=== PATIENT | female | born 1970 | race Caucasian/White ===

== ENCOUNTER 2017-02-19 22:42 | Emergency (ER) | payer OTHER ==
[~2017-02-19] VITALS: Ht 154.9 cm; Wt 68.0 kg
[2017-02-19 23:02] VITALS: BP 134/90
--- NOTE | 2017-02-20 02:03 | NUR ---
TO ER BED 5
--- NOTE | 2017-02-20 02:10 | NUR ---
PATIENT PRESENTS TO ED WITH C/O RT ANKLE PAIN, SWELLING, WARMTH TO TOUCH, S/P SPIDER BITE LAST NIGHT PT DENIES N/V/D; SKIN IS PINK/WARM/DRY; AAOX4 WITH EVEN AND STEADY GAIT; LUNGS CLEAR BL; HR EVEN AND REGULAR; PT DENIES ANY FEVER, CP, SOB, OR COUGH AT THIS TIME; PATIENT STATES PAIN OF 7/10 AT THIS TIME; VSS; PATIENT POSITIONED FOR COMFORT; HOB ELEVATED; BEDRAILS UP X2; BED DOWN. ER MD MADE AWARE OF PT STATUS.
[2017-02-20 03:41] VITALS: BP 134/90
--- NOTE | 2017-02-20 03:42 | NUR ---
Patient discharged with v/s stable. Written and verbal after care instructions given and explained. Patient alert, oriented and verbalized understanding of instructions. Ambulatory with steady gait. All questions addressed prior to discharge. ID band removed. Patient advised to follow up with PMD. Rx of PREDNISONE AND BENADRYL given. Patient educated on indication of medication including possible reaction and side effects. Opportunity to ask questions provided and answered.
== END 2017-02-20 03:42 | disposition home or self-care (01) ==
LOC: MED 23:18
DX: S80.862A Insect bite (nonvenomous), left lower leg, initial encounter (principal); W57.XXXA Bitten or stung by nonvenomous insect and other nonvenomous arthropods, initial encounter; Y93.89 Activity, other specified; Y92.89 Other specified places as the place of occurrence of the external cause; Y99.8 Other external cause status
CPT/HCPCS: 99283

== ENCOUNTER 2017-03-04 20:19 | Emergency (ER) | payer OTHER ==
[~2017-03-04] VITALS: Ht 154.9 cm; Wt 63.5 kg
--- NOTE | 2017-03-04 20:19 | NUR ---
Patient HORACIO FINCH, triaged by RN and transferred to ED lobby to wait for an available bed.
[2017-03-04 20:52] VITALS: BP 163/109
--- NOTE | 2017-03-05 00:57 | NUR ---
Patient transferred to bed 3 via wheelchair by tech. RN evaluating patient at bedside.
--- NOTE | 2017-03-05 01:08 | NUR ---
Patient being evaluated by Dr. Gunter at bedside.
--- NOTE | 2017-03-05 01:10 | NUR ---
46/F presents to ED for evaluation of left foot pain x4 days ago. Pt c/o 9/10 pain, pressure, constant, worse with ambulation. Erythema noted to left foot, warm to touch, no open lesions. Pt was placed on Bactrim and followed up with PMD and was given hydrocortisone cream with no improvement. AOX4, VSS.
[2017-03-05] MEDS ORDERED: IBUPROFEN 800 MG TAB PO ONE (01:20)
[2017-03-05] MEDS ORDERED: SULFAMETH/TRIMETH DS 800/160MG 1 TAB PO ONE (01:20)
[2017-03-05 01:39] VITALS: BP 149/103
--- NOTE | 2017-03-05 01:39 | NUR ---
Patient discharged with v/s stable. Written and verbal after care instructions given and explained. Patient alert, oriented and verbalized understanding of instructions. Ambulatory with steady gait. All questions addressed prior to discharge. ID band removed. Patient advised to follow up with PMD. Rx of Motrin 800mg, Bactrim DS 800mg-160mg and Keflex 500mg given. Patient educated on indication of medication including possible reaction and side effects. Opportunity to ask questions provided and answered. Taxi called for patient. ETA 45 mins.
== END 2017-03-05 01:39 | disposition home or self-care (01) ==
LOC: MED 20:19
DX: L03.116 Cellulitis of left lower limb (principal); R03.0 Elevated blood-pressure reading, without diagnosis of hypertension
CPT/HCPCS: 99283

== ENCOUNTER 2020-08-08 08:56 | Emergency (ER) | payer OTHER ==
[~2020-08-08] VITALS: Ht 152.4 cm; Wt 74.4 kg
--- NOTE | 2020-08-08 09:00 | NUR ---
Patient ambulated to bed 11.
[2020-08-08 09:03] VITALS: BP 162/114
--- NOTE | 2020-08-08 10:02 | NUR ---
Patient discharged with v/s stable, AAOX4, IN NAD. Written and verbal after care instructions given and explained. Patient alert, oriented and verbalized understanding of instructions. Ambulatory with steady gait. All questions addressed prior to discharge. ID band removed, NO IV ACCESS THIS VISIT. Patient advised to follow up with PMD. Rx of Permethrin lotion given. Patient educated on indication of medication including possible reaction and side effects. Opportunity to ask questions provided and answered.
== END 2020-08-08 10:02 | disposition home or self-care (01) ==
LOC: MED 08:56
DX: B85.0 Pediculosis due to Pediculus humanus capitis (principal); R03.0 Elevated blood-pressure reading, without diagnosis of hypertension; F17.200 Nicotine dependence, unspecified, uncomplicated
CPT/HCPCS: 99281